=== PATIENT | female | born 2000 | race Caucasian/White ===

== ENCOUNTER 2019-05-03 16:50 | Inpatient (IN) | payer SELFPAY ==
[2019-05-03 17:11] LABS: #Basophils 0.1 thou/uL (0.0-0.2); #Eosinphils 0.1 thou/uL (0.0-0.7); #Lymphocytes 2.8 thou/uL (1.20-3.40); #Monocytes 0.4 thou/uL (0.11-0.59); #Neutrophils 7.7 thou/uL (1.40-6.50); %Basophils 0.6 % (0.0-1.0); %Eosinophils 0.8 % (0.0-10.0); %Lymphocytes 25.1 % (28.0-48.0); %Monocytes 3.2 % (0.0-4.0); %Neutrophils 70.3 % (31.0-61.0); Hemoglobin 13.1 g/dL (12.0-16.0); Mean Corpuscular HGB CONC 34.3 g/dL (32.0-36.0); Mean Corpuscular Hemoglobin 31.9 pg (25.0-35.0); Mean Platelet Volume 6.4 fL (7.4-10.4); Platelet Count 294 thou/uL (130-400); RBC Distribution Width 10.7 % (11.5-14.5); Red Blood Cell (RBC) Count 4.12 mill/uL (4.00-5.20)
[2019-05-03 17:31] LABS: ALT (SGPT) 10 U/L (8-55); AST (SGOT) 14 U/L (5-30); Albumin 4.5 g/dL (3.5-5.0); Alkaline Phosphatase 52 U/L (40-150); Anion Gap 13 mmol/L (10-20); BUN (Urea Nitrogen) 12 mg/dL (8.4-21.0); Bilirubin, Total 0.9 mg/dL (0.2-1.2); Calc. Creatinine Clearance 0 mL/min (70-130); Calcium 9.7 mg/dL (7.8-10.44); Carbon Dioxide 25 mmol/L (22-29); Chloride 103 mmol/L (98-107); Estimated GFR-MDRD Greater than 90; Glucose 95 mg/dL (70-105); Potassium 3.7 mmol/L (3.5-5.1); Protein, Total 7.5 g/dL (6.0-8.3); Sodium 137 mmol/L (136-145)
[2019-05-03 18:30] LABS: Pregnancy Test - Urine (BHCG) Negative (Negative); Pregu Control Background? CLEAR/WHITE (CLR/WHITE); Pregu Control Bar Appear? YES (CONTROL BAR); Specific Gravity 1.013 (1.002-1.036)
--- NOTE | 2019-05-03 20:26 | CT ---
CT ABDOMEN AND PELVIS WITH IV CONTRAST 05/03/2019 CLINICAL INFORMATION: Right lower quadrant abdominal pain. COMPARISON: None. Technique: Multiple contiguous axial CT images are obtained through the abdomen and pelvis with IV contrast. Cor onal reformatted images are provided. FINDINGS: Lower Chest: within normal limits. Vessels: Abdominal aorta is normal in caliber without evidence of an aortic dissection Abdomen: Portal vein:Patent Gallbladder: Within normal limits for CT imaging. Liver: within normal limits. Pancreas: within normal limits. Spleen: within normal limits. Adrenals: within normal limits. Kidneys: Subcentimeter too small to characterize hypodense lesion in the midportion right kidney stat istically likely representing a small cyst. The kidneys otherwise have a normal CT appearance. Bowel: Small bowel loops are fluid-filled but otherwise normal in caliber. Appendix: The appendix measures 7 mm in diameter. However, the johnson of the appendix do appear minima lly thickened with mild enhancement. Questionable minimal adjacent periappendiceal inflammatory changes. These findings are overall equivocal for early acute appendicitis. Peritoneum: No ascites or free air; no fluid collection. Mesentery and Retroperitoneum: No enlarged mesenteric or retroperitoneal lymph nodes. Abdominal Wall: within normal limits. Pelvis: Reproductive Organs: No pelvic masses. Pelvis within normal limits. Bladder: within normal limits. Bones: There is mild left convex curvature of the thoracolumbar spine. IMPRESSION: 1. Equivocal findings for early acute appendicitis. Clinical correlation is required given subtle fin dings. Findings were discussed with Dr. Mcdermott in the emergency department on 05/03/2019 at 2022 hours
[2019-05-03] MEDS ORDERED: Morphine 4 MG/ML VIAL SLOW IVP PRN (20:57)
[2019-05-03] MEDS ORDERED: Lorazepam 2 MG/ML VIAL SLOW IVP PRN (20:57)
[2019-05-03] MEDS ORDERED: Ondansetron ODT 4 MG TAB PO PRN (20:57)
[2019-05-03] MEDS ORDERED: Ondansetron PF 4 MG/2 ML Vial IVP PRN (20:57)
[2019-05-03] MEDS ORDERED: Morphine 2 MG/ML SYRINGE SLOW IVP PRN (20:57)
[2019-05-03] MEDS ORDERED: Acetaminophen 1,000 MG in Premix Bag 1 BAG IVPB PRN (21:00)
[2019-05-03] MEDS ORDERED: Enoxaparin Sodium 40 MG/0.4 ML SYRINGE SC SCH (21:00)
[2019-05-03] MEDS ORDERED: Ketorolac Tromethamine 30 MG/ML VIAL IVP PRN (21:00)
--- NOTE | 2019-05-03 21:24 | HP ---
HISTORY OF PRESENT ILLNESS: Cassandra Corral is a 18-year-old female from [place] currently has onset of pain in right lower quadrant yesterday. The pain is worse with movement. She has suffered nausea, but no vomiting. She is seen in the emergency room and CAT scan of the abdomen and pelvis obtained revealing changes consistent with early appendicitis. White count is 11, hemoglobin 13. Electrolytes unremarkable. test is negative. ALLERGIES: NONE. TOBACCO: None. ALCOHOL: None. MEDICATIONS: Prozac 50 mg a day. PAST SURGICAL HISTORY: Almo teeth. PAST MEDICAL HISTORY: Anxiety, depression, and anorexia. REVIEW OF SYSTEMS: Noncontributory 10 point. PHYSICAL EXAMINATION: VITAL SIGNS: Blood pressure 110/68, respiratory rate 16, temperature 99 degrees. HEENT: Unremarkable. LUNGS: Clear to auscultation. CARDIAC: Regular rate and rhythm without murmur or gallop. ABDOMEN: Soft, tenderness in right lower quadrant. No guarding or rebound. EXTREMITIES: Unremarkable. ASSESSMENT AND PLAN: History, exam and radiological findings consistent with appendicitis. Recommend laparoscopic video appendectomy. Risks of infection, bleeding, reoperation explained. She consents. We will plan that early in the morning. Job ID: [id number]
[2019-05-03] MEDS ORDERED: Ketorolac Tromethamine 30 MG/ML VIAL ONE (21:57)
[2019-05-03] MEDS ORDERED: Enoxaparin Sodium 40 MG/0.4 ML SYRINGE ONE (21:57)
[2019-05-03] MEDS ORDERED: Piperacillin/Tazobactam 3.375 GM VIAL ONE (21:57)
[2019-05-03] MEDS ORDERED: Ketorolac Tromethamine 30 MG/ML VIAL IVP SCH (22:00)
[2019-05-03] MEDS ORDERED: Acetaminophen 1,000 MG in Premix Bag 1 BAG IVPB SCH (22:00)
[2019-05-03] MEDS: Lactated Ringer's 1,000 ML IV SCH (23:46)
[2019-05-04] MEDS: Piperacillin/Tazobactam 3.375 GM in Sodium Chloride 0.9% 100 ML IVPB SCH ×2 (00:13→03:28)
[2019-05-04 01:14] VITALS: BMI 23.7
[2019-05-04] MEDS: Lactated Ringer's 1,000 ML IV SCH (05:53)
[2019-05-04] MEDS ORDERED: Bupivacaine HCl 0.5%/Epinephrine 1:200,000/PF 30 ml Vial ONE (07:50)
[2019-05-04] MEDS ORDERED: Ketorolac Tromethamine 30 MG/ML VIAL ONE (07:53)
[2019-05-04] MEDS ORDERED: Fentanyl 100 MCG/2 ML VIAL ONE ×2 (07:58→09:19)
[2019-05-04] MEDS ORDERED: Acetaminophen 500 MG TAB PO PRN (07:59)
[2019-05-04] MEDS ORDERED: Ibuprofen 600 MG TAB PO PRN (07:59)
[2019-05-04] MEDS ORDERED: traMADol HCl 50 MG TAB PO PRN ×2 (07:59)
[2019-05-04] MEDS ORDERED: FLUoxetine HCl 10 MG CAP PO SCH (09:00)
--- NOTE | 2019-05-04 10:05 | OP ---
DATE OF PROCEDURE: 05/04/2019 PREOPERATIVE DIAGNOSIS: Acute appendicitis. POSTOPERATIVE DIAGNOSIS: Acute appendicitis. PROCEDURE PERFORMED: Laparoscopic video appendectomy. ANESTHESIA: General, local 0.5% Marcaine with epinephrine 30 mL. DESCRIPTION OF PROCEDURE: The patient was taken to the operating room. Under general anesthesia, abdomen was clipped of hair, prepared with ChloraPrep and draped in routine fashion. Galvin catheter was placed at the beginning of the procedure and removed at the end. Infraumbilical incision was made. Pneumoperitoneum to 15 mmHg was obtained with a Veress needle, replaced with a 5 port, laparoscope inserted. Suprapubic incision was made and a 12 port placed. Right lateral subcostal incision was made and a 5 port placed. Appendix was acutely inflamed. Mesoappendix was taken down with the LigaSure. The stump of the appendix was divided with Endo-OZZY blue load stapler. Stapled cecal stump was hemostatic and secured after clips applied. Irrigant and pneumoperitoneum evacuated. All instruments removed and all skin incisions were approximated with a subdermal 4-0 Monocryl after suprapubic fascia was approximated with 0 Vicryl with UR needle. The patient tolerated the procedure well. Job ID: [id number]
--- NOTE | 2019-05-04 10:43 | DIS ---
DATE OF ADMISSION: 05/03/2019 DATE OF DISCHARGE: 05/04/2019 DISCHARGE DIAGNOSIS: Early appendicitis. DIAGNOSTIC STUDIES: CT scan of the abdomen and pelvis in the emergency room. Hospitalization overnight with intravenous antibiotics and fluids. Discharged home on Ultram, Tylenol, and Motrin p.r.n. pain. DIET AND ACTIVITY: As tolerated. No activity restrictions. PROCEDURE: Laparoscopic video appendectomy. HISTORY: A 18-year-old female, presenting with a good history and exam for appendicitis, confirmed by CT scan, underwent laparoscopic video appendectomy after overnight hospitalization. Discharged home, instructed to take Tylenol, Motrin [id number] for pain, and Ultram, prescription given if needed. Diet and activity as tolerated. No activity restrictions. Follow up in my office in 2 to 3 weeks. Job ID: [id number]
[2019-05-04 10:56] VITALS: TEMP 98.1
[2019-05-04 12:21] VITALS: BP 102/66
== END 2019-05-04 14:14 | disposition home or self-care (01) | DRG 343 ==
LOC: ERS 16:50 → SURG A 22:42 → OBSVTOIN 22:42
PROVIDERS: ADMIT Specialist; ATTEND Specialist
PROC: 0DTJ4ZZ Resection of Appendix, Percutaneous Endoscopic Approach (ICD-10-PCS; principal; 2019-05-04)
DX: K35.80 Unspecified acute appendicitis (principal); F41.9 Anxiety disorder, unspecified; F32.9 Major depressive disorder, single episode, unspecified; R63.0 Anorexia; Z79.899 Other long term (current) drug therapy
CPT/HCPCS: 36415; 74177; 80053; 81025; 85025; 88304; 96365; J0131; J0670; J1650; J1885; J2543; J3010; J3490